=== PATIENT | female | born 1990 | race Caucasian/White ===

== ENCOUNTER 2019-07-10 11:05 | Inpatient (IN) | payer OTHER ==
[~2019-07-10 11:05] MED LIST: Bupivacaine 0.25% 10 ML SDV ONE
[2019-07-10] MEDS ORDERED: Sodium Chloride 0.9% 10 ML Syringe FLUSH PRN (11:52)
[2019-07-10] MEDS ORDERED: Ondansetron 4 MG/2 ML SDV IVPUSH PRN ×2 (11:52→16:38)
[2019-07-10] MEDS ORDERED: Ampicillin 2 GM in Sodium Chloride 0.9% 100 ML IV ONE (12:00)
[2019-07-10] MEDS ORDERED: Oxytocin/Lactated Ringers 10 UNIT/1,000 ML BAG IV SCH ×2 (12:00)
[2019-07-10] MEDS: Lactated Ringers 1,000 ML IV SCH ×3 (12:43→22:02)
[2019-07-10] MEDS ORDERED: ePHEDrine 50 MG/ML SDV IVPUSH PRN (16:38)
[2019-07-10] MEDS ORDERED: fentaNYL 100 MCG/2 ML SDV EPIDUR PRN (16:38)
[2019-07-10] MEDS: Ampicillin 1 GM in Sodium Chloride 0.9% 100 ML IV SCH ×2 (16:40→22:02)
[2019-07-10] MEDS ORDERED: Bupivacaine/fentaNYL/NS 100 ML Bag EPIDUR SCH (16:45)
[2019-07-10] MEDS ORDERED: Phenylephrine 1 MG in Sodium Chloride 0.9% 10 ML IV SCH (16:45)
--- NOTE | 2019-07-10 16:46 | PCM.PREANE ---
Preanesthetic Assessment - Anesthesia/Transfusion/Family Hx Anesthesia History: Prior Anesthesia Without Reaction Family History of Anesthesia Reaction: No Transfusion History: No Prior Transfusion(s) Intubation History: Unknown - Review of Systems General: No Symptoms Pulmonary: No Symptoms (History of smokinppd times 5 years, Drugs none noted for 7 months, (marijuana and meth times 2)) Cardiovascular: No Symptoms Gastrointestinal: No Symptoms, Constipation Neurological: No Symptoms Other: Reports: None (History of Drug abuse, currently on suboxone.), Liver Problems (history of Hepatitis C) - Physical Assessment NPO Status Date: 07/10/19 NPO Status Time: 12:00 Vital Signs: Last Vital Signs Temp 36.8 C 07/10/19 11:52 Pulse 65 07/10/19 11:52 Resp 16 07/10/19 11:52 BP 103/52 L 07/10/19 11:52 Pulse Ox 99 07/10/19 11:52 Height: 1.7 m Weight: 84.368 kg ASA Class: 2 Mental Status: Alert & Oriented x3 Airway Class: Mallampati = 2 Dentition: Reports: Normal Dentition, Caries Thyro-Mental Finger Breadths: 3 Mouth Opening Finger Breadths: 3 ROM/Head Extension: Full Lungs: Clear to Auscultation, Normal Respiratory Effort Cardiovascular: Regular Rate, Regular Rhythm, No Murmurs - Lab Values: Laboratory Last Values WBC 11.11 K/mm3 (3.98-10.04) H 07/10/19 12:12 RBC 3.85 M/mm3 (3.98-5.22) L 07/10/19 12:12 Hgb 11.4 gm/dl (11.2-15.7) 07/10/19 12:12 Hct 34.9 % (34.1-44.9) 07/10/19 12:12 MCV 90.6 fl (79.4-94.8) 07/10/19 12:12 MCH 29.6 pg (25.6-32.2) 07/10/19 12:12 MCHC 32.7 g/dl (32.2-35.5) 07/10/19 12:12 RDW Std Deviation 45.6 fL (36.4-46.3) 07/10/19 12:12 Plt Count 221 K/mm3 (182-369) 07/10/19 12:12 MPV 9.7 fl (9.4-12.3) 07/10/19 12:12 Neut % (Auto) 72.6 % (34.0-71.1) H 07/10/19 12:12 Lymph % (Auto) 19.6 % (19.3-51.7) 07/10/19 12:12 [place] % (Auto) 6.2 % (4.7-12.5) 07/10/19 12:12 Eos % (Auto) 0.8 (0.7-5.8) 07/10/19 12:12 Baso % (Auto) 0.1 % (0.1-1.2) 07/10/19 12:12 Neut # (Auto) 8.06 K/mm3 (1.56-6.13) H 07/10/19 12:12 Lymph # (Auto) 2.18 K/mm3 (1.18-3.74) 07/10/19 12:12 [place] # (Auto) 0.69 K/mm3 (0.24-0.36) H 07/10/19 12:12 Eos # (Auto) 0.09 K/mm3 (0.04-0.36) 07/10/19 12:12 Baso # (Auto) 0.01 K/mm3 (0.01-0.08) 07/10/19 12:12 Urine Color Yellow (Yellow) 07/10/19 12:40 Urine Appearance Clear (Clear) 07/10/19 12:40 Urine pH 7.0 (5.0-8.0) 07/10/19 12:40 Ur Specific [place] 1.025 (1.005-1.030) 07/10/19 12:40 Urine Protein Negative (Negative) 07/10/19 12:40 Urine Glucose (UA) Negative (Negative) 07/10/19 12:40 Urine Ketones Negative (Negative) 07/10/19 12:40 Urine Occult Blood Negative (Negative) 07/10/19 12:40 Urine Nitrite Negative (Negative) 07/10/19 12:40 Urine Bilirubin Negative (Negative) 07/10/19 12:40 Urine Urobilinogen 1.0 (0.2-1.0) 07/10/19 12:40 Ur Leukocyte Esterase Negative (Negative) 07/10/19 12:40 Urine RBC 0-5 /hpf (0-5) 07/10/19 12:40 Urine WBC 0-5 /hpf (0-5) 07/10/19 12:40 Ur Squamous Epith Cells 10-20 /hpf (0-5) H 07/10/19 12:40 Urine Bacteria Moderate /hpf (FEW) H 07/10/19 12:40 Urine Mucus Moderate /hpf (FEW) H 07/10/19 12:40 Urine Opiates Screen Negative (NSOHHK=136) 07/10/19 12:40 Ur Buprenorphine Scrn Presumptive positive (CUTOFF=10) 07/10/19 12:40 Ur Oxycodone Screen Negative (LHY8LV=363) 07/10/19 12:40 Urine Methadone Screen Negative (TNAGIQ=448) 07/10/19 12:40 Ur Propoxyphene Screen Negative (ZBNSAD=028) 07/10/19 12:40 Ur Barbiturates Screen Negative (AYWTLZ=505) 07/10/19 12:40 Ur Tricyclics Screen Negative (EVZQGD=516) 07/10/19 12:40 Ur Phencyclidine Scrn Negative (CUTOFF=25) 07/10/19 12:40 Ur Amphetamine Screen Negative (QIDXVE=738) 07/10/19 12:40 U Methamphetamines Scrn Negative (SEKSOJ=189) 07/10/19 12:40 U Benzodiazepines Scrn Negative (VAPCWJ=876) 07/10/19 12:40 U Cocaine Metab Screen Negative (WTHYQC=758) 07/10/19 12:40 U Marijuana (THC) Screen Negative (CUTOFF=50) 07/10/19 12:40 Blood Type AB POSITIVE 07/10/19 12:12 Gel Antibody Screen Negative 07/10/19 12:12 Above labs reviewed and noted and within acceptable ranges to proceed with epidural. 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: Psychiatric History: Reports: Addiction, Depression Hematologic History: Reports: Anemia - Infectious Disease History Infectious Disease History: Reports: Hepatitis C - Past Surgical History HEENT Surgical History: Reports: Naso-Sinus Surgery, Other (See Below) Other HEENT Surgeries/Procedures: 12/2018: plastic surgery on nose d/t dog bite GI Surgical History: Reports: None - SUBSTANCE USE Smoking Status *Q: Former Smoker Tobacco Use Within Last Twelve Months: Cigarettes Recreational Drug Use History: Yes Recreational Drug Type: Reports: Marijuana/Hashish, Methamphetamine, Other (see below) - HOME MEDS Home Medications: Home Meds Buprenorphine HCl/Naloxone HCl [Buprenorp-Nalox 8-2 mg Sl Film] 1 each SL DAILY 07/10/19 [History] Docusate Sodium [Dulcolax Stool Softener] 100 mg PO DAILY PRN 07/10/19 [History] Pnv #35/Iron/Fa #6/Dha [Prenate Essential Softgel] 1 tab PO DAILY 07/10/19 [ History] - CURRENT (IN HOUSE) MEDS Current Meds: Current Medications Ephedrine Sulfate (Ephedrine Sulfate) 5 mg IVPUSH ASDIRECTED PRN PRN Reason: Hypotension Fentanyl (Sublimaze) 100 mcg EPIDUR Q3H PRN PRN Reason: Pain Fentanyl/Bupivacaine HCl (Fentanyl/Bupivacaine/Ns 2 Mcg-0.125% 100 Ml) 100 ml EPIDUR ASDIRECTED [facility] Ampicillin Sodium 1 gm/ Sodium (Chloride) 100 mls @ 200 mls/hr IV Q4H [facility] Last Admin: 07/10/19 16:40 Dose: 200 mls/hr Lactated Ringer's (Ringers, Lactated) 1,000 mls @ 100 mls/hr IV ASDIRECTED [facility] Last Admin: 07/10/19 16:37 Dose: 100 mls/hr Oxytocin/Lactated Ringer's (Pitocin In Lr 10 Units/1,000 Ml) 10 unit in 1,000 mls @ 12 mls/hr IV TITRATE [facility]; Protocol Last Titration: 07/10/19 15:35 Dose: 8 munits/min, 48 mls/hr Oxytocin/Lactated Ringer's (Pitocin In Lr 10 Units/1,000 Ml) 10 unit in 1,000 mls @ 100 mls/hr IV .CONTINUOUS [facility]; Protocol Phenylephrine HCl 1 mg/ Sodium (Chloride) 10.1 mls @ 1 mls/sec IV TITRATE [facility]; Protocol Lidocaine HCl (Xylocaine 1%) 50 ml INJECT ONETIME ONE Stop: 07/10/19 18:01 Ondansetron HCl (Zofran) 4 mg IVPUSH Q4H PRN PRN Reason: Nausea/Vomiting Ondansetron HCl (Zofran) 4 mg IVPUSH ONETIME PRN PRN Reason: Nausea/Vomiting Sodium Chloride (Saline Flush) 10 ml FLUSH ASDIRECTED PRN PRN Reason: Keep Vein Open Discontinued Medications Ampicillin Sodium 2 gm/ Sodium (Chloride) 100 mls @ 200 mls/hr IV ONETIME ONE Stop: 07/10/19 12:29 Last Admin: 07/10/19 12:43 Dose: 200 mls/hr
[2019-07-10] MEDS ORDERED: Lidocaine 1% 50 ML MDV INJECT ONE (18:00)
[2019-07-10] MEDS: Calcium Carbonate 500 MG Tab.Chew PO PRN (23:05)
[2019-07-11] MEDS: Ampicillin 1 GM in Sodium Chloride 0.9% 100 ML IV SCH (02:05)
[2019-07-11] MEDS: Calcium Carbonate 500 MG Tab.Chew PO PRN (02:14)
--- NOTE | 2019-07-11 03:43 | PCM.LDHP ---
L&D History of Present Illness - General Date of Service: 07/10/19 Admit Problem/Dx: Patient Status Order with Admit Dx/Problem 07/10/19 11:52 Patient Status [ADT] Routine Admission Diagnosis/Problem Admission Diagnosis/Problem Source of Information: Patient, Old Records - History of Present Illness Introduction:: 29 year old at 39+ here for induction of labor. PNC with myself complicated by incarceration, hep c and suboxone use throughout . Late care had been seen early in [place] and then not until 28 weeks with myself. 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: Psychiatric History: Reports: Addiction, Depression Hematologic History: Reports: Anemia - Infectious Disease History Infectious Disease History: Reports: Hepatitis C - Past Surgical History HEENT Surgical History: Reports: Naso-Sinus Surgery, Other (See Below) Other HEENT Surgeries/Procedures: 12/2018: plastic surgery on nose d/t dog bite GI Surgical History: Reports: None Social & Family History - Family History Family Medical History: Noncontributory - Tobacco Use Smoking Status *Q: Former Smoker Years of Tobacco use: 5 Packs/Tins Daily: 0.5 Used Tobacco, but Quit: Yes Month/Year Tobacco Last Used: 09/2018 - Recreational Drug Use Recreational Drug Use: Yes Recreational Drug Type: Reports: Marijuana/Hashish, Methamphetamine, Other (see below) Other Recreational Drug Type: Opiods H&P Review of Systems - Review of Systems: Review Of Systems: See Below General: Reports: No Symptoms HEENT: Reports: No Symptoms Pulmonary: Reports: No Symptoms Cardiovascular: Reports: No Symptoms Gastrointestinal: Reports: No Symptoms Genitourinary: Reports: No Symptoms Musculoskeletal: Reports: No Symptoms Skin: Reports: No Symptoms Psychiatric: Reports: No Symptoms Neurological: Reports: No Symptoms Hematologic/Lymphatic: Reports: No Symptoms Immunologic: Reports: No Symptoms L&D Exam - Exam Exam: See Below - Vital Signs Vital Signs: Last Vital Signs Temp 36.8 C 07/10/19 11:52 Pulse 65 07/10/19 11:52 Resp 16 07/10/19 11:52 BP 103/52 L 07/10/19 11:52 Pulse Ox 99 07/10/19 11:52 Weight: 84.368 kg - OB Specific Contraction Intensity: Mild to Moderate Heart Rate (FHR) Variability: Moderate (6-25 bmp) Presentation: Vertex - Bowen Score Bowen Score Cervix Position: Midposition Bowen Score Consistency: Medium Bowen Score Effacement: 51-70% Bowen Score Dilation: 3-4 cm Bowen Score 's Station: -2 Bowen Score Total: 7 - Exam General: Alert, Oriented HEENT: PERRLA, Conjunctiva Clear, EACs Clear, EOMI, Hearing Intact, Mucosa Moist & [place], Nares Patent, Normal Nasal Septum, Posterior Pharynx Clear, TMs Clear Neck: Supple, Trachea Midline Lungs: Clear to Auscultation, Normal Respiratory Effort Cardiovascular: Regular Rate, Regular Rhythm GI/Abdominal Exam: Normal Bowel Sounds, Soft, Non-Tender, No Organomegaly, No Distention, No Abnormal Bruit, No Mass, Pelvis Stable Rectal Exam: Normal Rectal Tone Genitourinary: Normal external exam, Normal bimanual exam, Normal speculum exam Back Exam: Normal Inspection, Full Range of Motion Extremities: Normal Inspection, Normal Range of Motion, Non-Tender, No Pedal Edema, Normal Capillary Refill Skin: Warm, Dry, Intact Neurological: Cranial Nerves Intact, Reflexes Equal Bilateral Psychiatric: Alert, Normal Affect, Normal Mood - Patient Data Lab Results Last 24 hrs: Laboratory Results - last 24 hr 07/10/19 07/10/19 07/10/19 Range/Units 12:12 12:12 12:12 WBC 11.11 H (3.98-10.04) K/mm3 RBC 3.85 L (3.98-5.22) M/mm3 Hgb 11.4 (11.2-15.7) gm/dl Hct 34.9 (34.1-44.9) % MCV 90.6 (79.4-94.8) fl MCH 29.6 (25.6-32.2) pg MCHC 32.7 (32.2-35.5) g/dl RDW Std Deviation 45.6 (36.4-46.3) fL Plt Count 221 (182-369) K/mm3 MPV 9.7 (9.4-12.3) fl Neut % (Auto) 72.6 H (34.0-71.1) % Lymph % (Auto) 19.6 (19.3-51.7) % [place] % (Auto) 6.2 (4.7-12.5) % Eos % (Auto) 0.8 (0.7-5.8) Baso % (Auto) 0.1 (0.1-1.2) % Neut # (Auto) 8.06 H (1.56-6.13) K/mm3 Lymph # (Auto) 2.18 (1.18-3.74) K/mm3 [place] # (Auto) 0.69 H (0.24-0.36) K/mm3 Eos # (Auto) 0.09 (0.04-0.36) K/mm3 Baso # (Auto) 0.01 (0.01-0.08) K/mm3 Urine Color (Yellow) Urine Appearance (Clear) Urine pH (5.0-8.0) Ur Specific [place] (1.005-1.030) Urine Protein (Negative) Urine Glucose (UA) (Negative) Urine Ketones (Negative) Urine Occult Blood (Negative) Urine Nitrite (Negative) Urine Bilirubin (Negative) Urine Urobilinogen (0.2-1.0) Ur Leukocyte Esterase (Negative) Urine RBC (0-5) /hpf Urine WBC (0-5) /hpf Ur Squamous Epith Cells (0-5) /hpf Urine Bacteria (FEW) /hpf Urine Mucus (FEW) /hpf Urine Opiates Screen (TCBDMU=606) Ur Buprenorphine Scrn (CUTOFF=10) Ur Oxycodone Screen (ZXU7UW=120) Urine Methadone Screen (QAPAQS=294) Ur Propoxyphene Screen (YWSXNX=510) Ur Barbiturates Screen (RRXZJM=480) Ur Tricyclics Screen (IDEPSF=893) Ur Phencyclidine Scrn (CUTOFF=25) Ur Amphetamine Screen (ROMVGF=761) U Methamphetamines Scrn (VFMKSO=233) U Benzodiazepines Scrn (BXSLMF=528) U Cocaine Metab Screen (QPBOAO=904) U Marijuana (THC) Screen (CUTOFF=50) RPR Non-reactive (NONREACTIVE) MRSA (PCR) Blood Type AB POSITIVE Gel Antibody Screen Negative 07/10/19 07/10/19 07/10/19 Range/Units 12:40 12:40 12:40 WBC (3.98-10.04) K/mm3 RBC (3.98-5.22) M/mm3 Hgb (11.2-15.7) gm/dl Hct (34.1-44.9) % MCV (79.4-94.8) fl MCH (25.6-32.2) pg MCHC (32.2-35.5) g/dl RDW Std Deviation (36.4-46.3) fL Plt Count (182-369) K/mm3 MPV (9.4-12.3) fl Neut % (Auto) (34.0-71.1) % Lymph % (Auto) (19.3-51.7) % [place] % (Auto) (4.7-12.5) % Eos % (Auto) (0.7-5.8) Baso % (Auto) (0.1-1.2) % Neut # (Auto) (1.56-6.13) K/mm3 Lymph # (Auto) (1.18-3.74) K/mm3 [place] # (Auto) (0.24-0.36) K/mm3 Eos # (Auto) (0.04-0.36) K/mm3 Baso # (Auto) (0.01-0.08) K/mm3 Urine Color Yellow (Yellow) Urine Appearance Clear (Clear) Urine pH 7.0 (5.0-8.0) Ur Specific [place] 1.025 (1.005-1.030) Urine Protein Negative (Negative) Urine Glucose (UA) Negative (Negative) Urine Ketones Negative (Negative) Urine Occult Blood Negative (Negative) Urine Nitrite Negative (Negative) Urine Bilirubin Negative (Negative) Urine Urobilinogen 1.0 (0.2-1.0) Ur Leukocyte Esterase Negative (Negative) Urine RBC 0-5 (0-5) /hpf Urine WBC 0-5 (0-5) /hpf Ur Squamous Epith Cells 10-20 H (0-5) /hpf Urine Bacteria Moderate H (FEW) /hpf Urine Mucus Moderate H (FEW) /hpf Urine Opiates Screen Negative (IHPMQK=161) Ur Buprenorphine Scrn Presumptive positive (CUTOFF=10) Ur Oxycodone Screen Negative (ULV4YE=823) Urine Methadone Screen Negative (URBZUU=384) Ur Propoxyphene Screen Negative (KDBHZM=141) Ur Barbiturates Screen Negative (PVTZDM=221) Ur Tricyclics Screen Negative (POCPTK=235) Ur Phencyclidine Scrn Negative (CUTOFF=25) Ur Amphetamine Screen Negative (AIRSIX=633) U Methamphetamines Scrn Negative (IELDZE=785) U Benzodiazepines Scrn Negative (HRHKIL=245) U Cocaine Metab Screen Negative (MLXYPV=433) U Marijuana (THC) Screen Negative (CUTOFF=50) RPR (NONREACTIVE) MRSA (PCR) Negative Blood Type Gel Antibody Screen Result Diagrams: 07/10/19 12:12 Problem List Initiated/Reviewed/Updated: Yes Orders Last 24hrs: Active Orders 24 hr Category Date Time Status Patient Status [ADT] Routine ADT 07/10/19 11:52 Active Activity as Tolerated [RC] PFP Care 07/10/19 11:52 Active Communication Order [RC] ASDIRECTED Care 07/10/19 11:52 Active Non Stress Test [RC] PER UNIT ROUTINE Care 07/10/19 11:52 Active Notify Provider [RC] ASDIRECTED Care 07/10/19 16:38 Active Notify Provider [RC] PFP Care 07/10/19 11:52 Active Notify Provider [RC] PRN Care 07/10/19 11:52 Active Oxygen Therapy [RC] ASDIRECTED Care 07/10/19 16:38 Active Peripheral IV Care [RC] . DIRECTED Care 07/10/19 11:55 Active Pulse Oximetry [RC] ASDIRECTED Care 07/10/19 16:38 Active Pump Management, Intrathecal [RC] ASDIRECTED Care 07/10/19 11:56 Active Urinary Catheter Assessment [RC] ASDIRECTED Care 07/10/19 11:52 Active Vital Signs [RC] PER UNIT ROUTINE Care 07/10/19 11:52 Active Regular Diet [DIET] Diet 07/10/19 Lunch Active Ampicillin 1 gm Med 07/10/19 16:00 Active Sodium Chloride 0.9% [Normal Saline] 100 ml IV Q4H Bupivacaine/fentaNYL/NS [fentaNYL/Bupivacaine/NS 2 MCG- Med 07/10/19 16:45 Active 0.125% 100 ML] 100 ml EPIDUR ASDIRECTED Calcium Carbonate [Tums] Med 07/10/19 22:32 Active 1,000 mg PO Q2H PRN Lactated Ringers [Ringers, Lactated] 1,000 ml Med 07/10/19 12:00 Active IV ASDIRECTED Ondansetron [Zofran] Med 07/10/19 16:38 Active 4 mg IVPUSH ONETIME PRN Ondansetron [Zofran] Med 07/10/19 11:52 Active 4 mg IVPUSH Q4H PRN Oxytocin/Lactated Ringers [Pitocin in LR 10 Units/1,000 Med 07/10/19 12:00 Active ML] 10 unit in 1,000 ml IV .CONTINUOUS Oxytocin/Lactated Ringers [Pitocin in LR 10 Units/1,000 Med 07/10/19 12:00 Active ML] 10 unit in 1,000 ml IV TITRATE Phenylephrine [Heladio-Synephrine] 1 mg Med 07/10/19 16:45 Active Sodium Chloride 0.9% [Normal Saline] 10 ml IV TITRATE Sodium Chloride 0.9% [Saline Flush] Med 07/10/19 11:52 Active 10 ml FLUSH ASDIRECTED PRN ePHEDrine [ePHEDrine sulfate] Med 07/10/19 16:38 Active 5 mg IVPUSH ASDIRECTED PRN fentaNYL [Sublimaze] Med 07/10/19 16:38 Active 100 mcg EPIDUR Q3H PRN Electronic Heart Tones Ext w TOCO [WOMSER] Oth 07/10/19 11:52 Ordered Routine Electronic Heart Tones Internal [WOMSER] Per Unit Oth 07/10/19 11:52 Ordered Routine Peripheral IV Insertion Adult [OM.PC] Routine Oth 07/10/19 11:52 Ordered Resuscitation Status Routine Resus Stat 07/10/19 11:52 Ordered Medication Orders Calcium Carbonate/Glycine (Tums) 1,000 mg PO Q2H PRN PRN Reason: Indigestion Last Admin: 07/11/19 02:14 Dose: 1,000 mg Admin: 07/10/19 23:05 Dose: 1,000 mg Ephedrine Sulfate (Ephedrine Sulfate) 5 mg IVPUSH ASDIRECTED PRN PRN Reason: Hypotension Fentanyl (Sublimaze) 100 mcg EPIDUR Q3H PRN PRN Reason: Pain Last Admin: 07/10/19 16:52 Dose: 100 mcg Fentanyl/Bupivacaine HCl (Fentanyl/Bupivacaine/Ns 2 Mcg-0.125% 100 Ml) 100 ml EPIDUR ASDIRECTED [facility] Last Admin: 07/10/19 16:52 Dose: 100 ml Ampicillin Sodium 1 gm/ Sodium (Chloride) 100 mls @ 200 mls/hr IV Q4H [facility] Last Admin: 07/11/19 02:05 Dose: 200 mls/hr Infusion: 07/10/19 22:32 Dose: 200 mls/hr Admin: 07/10/19 22:02 Dose: 200 mls/hr Infusion: 07/10/19 17:10 Dose: 200 mls/hr Admin: 07/10/19 16:40 Dose: 200 mls/hr Lactated Ringer's (Ringers, Lactated) 1,000 mls @ 100 mls/hr IV ASDIRECTED [facility] Last Admin: 07/10/19 22:02 Dose: 100 mls/hr Infusion: 07/10/19 22:02 Dose: 100 mls/hr Admin: 07/10/19 16:37 Dose: 100 mls/hr Infusion: 07/10/19 16:37 Dose: 100 mls/hr Admin: 07/10/19 12:43 Dose: 100 mls/hr Oxytocin/Lactated Ringer's (Pitocin In Lr 10 Units/1,000 Ml) 10 unit in 1,000 mls @ 12 mls/hr IV TITRATE [facility]; Protocol Last Titration: 07/11/19 01:30 Dose: 8 munits/min, 48 mls/hr Titration: 07/11/19 00:30 Dose: 12 munits/min, 72 mls/hr Titration: 07/11/19 00:00 Dose: 10 munits/min, 60 mls/hr Titration: 07/10/19 23:30 Dose: 8 munits/min, 48 mls/hr Titration: 07/10/19 23:00 Dose: 6 munits/min, 36 mls/hr Titration: 07/10/19 22:30 Dose: 4 munits/min, 24 mls/hr Titration: 07/10/19 21:55 Dose: 2 munits/min, 12 mls/hr Titration: 07/10/19 20:50 Dose: 0 munits/min, 0 mls/hr Titration: 07/10/19 20:32 Dose: 6 munits/min, 36 mls/hr Titration: 07/10/19 20:00 Dose: 14 munits/min, 84 mls/hr Titration: 07/10/19 19:30 Dose: 12 munits/min, 72 mls/hr Titration: 07/10/19 17:50 Dose: 10 munits/min, 60 mls/hr Titration: 07/10/19 15:35 Dose: 8 munits/min, 48 mls/hr Titration: 07/10/19 15:05 Dose: 6 munits/min, 36 mls/hr Titration: 07/10/19 14:00 Dose: 4 munits/min, 24 mls/hr Admin: 07/10/19 12:43 Dose: 2 munits/min, 12 mls/hr Oxytocin/Lactated Ringer's (Pitocin In Lr 10 Units/1,000 Ml) 10 unit in 1,000 mls @ 100 mls/hr IV .CONTINUOUS [facility]; Protocol Phenylephrine HCl 1 mg/ Sodium (Chloride) 10.1 mls @ 1 mls/sec IV TITRATE [facility]; Protocol Ondansetron HCl (Zofran) 4 mg IVPUSH Q4H PRN PRN Reason: Nausea/Vomiting Ondansetron HCl (Zofran) 4 mg IVPUSH ONETIME PRN PRN Reason: Nausea/Vomiting Sodium Chloride (Saline Flush) 10 ml FLUSH ASDIRECTED PRN PRN Reason: Keep Vein Open Assessment/Plan Comment:: 29 year old here for induction. AROM clear fluid.
--- NOTE | 2019-07-11 04:04 | PCM.SN ---
- Free Text/Narrative Note: Stage I - Patient presented for induction of labor. Progressed to complete with reassuring FHT. AROM clear fluid. Stage II - of viable male, weight 8#, 8/9 APGARS at 320. Head delivered in a controlled manner over intact perineum, body and shoulders atraumatically. To maternal abdomen. Cord clamped. Cord and donor blood collected. Stage III - of intact placenta, 3vc, no laceration. EBL 50.
[2019-07-11] MEDS ORDERED: Docusate Sodium 100 MG Cap PO PRN (04:08)
[2019-07-11] MEDS: Witch Hazel Medicated Pads 40/Jar TOP PRN ×2 (06:07→11:52)
[2019-07-11] MEDS: Ibuprofen 600 MG Tab PO PRN ×2 (06:07→11:54)
[2019-07-11] MEDS: Benzocaine/Menthol 20%-0.5% Spray 56 GM Canister TOP PRN ×2 (06:08→11:53)
--- NOTE | 2019-07-11 09:28 | PCM48HPAN ---
Post Anesthesia Note - EVALUATION WITHIN 48HRS OF ANESTHETIC Vital Signs in Normal Range: Yes Patient Participated in Evaluation: Yes Respiratory Function Stable: Yes Airway Patent: Yes Cardiovascular Function Stable: Yes Hydration Status Stable: Yes Pain Control Satisfactory: Yes Nausea and Vomiting Control Satisfactory: Yes Mental Status Recovered: Yes Vital Signs: Last Vital Signs Temp 98.2 F 07/10/19 11:52 Pulse 65 07/10/19 11:52 Resp 16 07/10/19 11:52 BP 103/52 L 07/10/19 11:52 Pulse Ox 99 07/10/19 11:52 - COMMENTS/OBSERVATIONS Free Text/Narrative:: Patient is on her day 1. Stated understanding about possible backaches following epidural anesthesia. Denies any back soreness at this time. Explanation given about importance of avoiding back straining. Denies any headache or lightheadedness at this time. Comfortable now. Ambulating, no difficulty urinating.
[2019-07-11] MEDS ORDERED: Acetaminophen 325 MG Tab PO PRN (09:32)
[2019-07-11] MEDS ORDERED: Buprenorphine/Naloxone 8-2 MG Tab.SL SL SCH (10:00)
== END 2019-07-11 12:40 | disposition home or self-care (01) | DRG 807 ==
LOC: JD.OBCHECK 11:05 → JD.OB 11:06 → JD.OBCHECK 11:51 → JD.OB 11:52 → EEVIPCON 07-11 04:04 → OBSVTOIN 07-11 04:04 → JD.OB 07-11 04:05
PROVIDERS: ADMIT Obstetrics & Gynecology; ATTEND Obstetrics & Gynecology
PROC: 10E0XZZ Delivery of Products of Conception, External Approach (ICD-10-PCS; principal; 2019-07-11)
PROC: 10907ZC Drainage of Amniotic Fluid, Therapeutic from Products of Conception, Via Natural or Artificial Opening (ICD-10-PCS; 2019-07-11)
PROC: 3E0R3BZ Introduction of Anesthetic Agent into Spinal Canal, Percutaneous Approach (ICD-10-PCS; 2019-07-11)
DX: O99.324 Drug use complicating childbirth (principal); Z37.0 Single live birth; F11.90 Opioid use, unspecified, uncomplicated; Z3A.39 39 weeks gestation of pregnancy
CPT/HCPCS: 36415; 51702; 59025; 59409; 80306; 81001; 85025; 86592; 86850; 86900; 86901; 87641; A9270-GY; J0290; J0574-GY; J2590; J3010; J3490; J7050; J7120